=== PATIENT | female | born 1940 | race Caucasian/White ===

== ENCOUNTER 2018-04-08 14:13 | Emergency (ER) | payer OTHER ==
[~2018-04-08] VITALS: Ht 154.9 cm; Wt 66.2 kg
[~2018-04-08 14:13] MED LIST: ALBAFORT325 ( 65 ); ATROVENT 00.5 MG/2.5 IH; CALCIUM600 MG; CATAFLAM50 MG PO; DICLOFENAC SODI50 MG PO; LEVOTHROID25 MCG; LIPITOR20 MG; ORPH100T PO; PANTOPRAZOLE SO40 MG; PRE PROTEIN1 TAB; SINGULAIR 10MG10 MG PO; VITAMIN D1000 UNIT
== END 2018-04-08 20:05 | disposition home or self-care (01) ==
LOC: ER 14:13
DX: M54.31 Sciatica, right side (principal)

== ENCOUNTER 2018-09-14 13:50 | Emergency (ER) | payer OTHER ==
[~2018-09-14] VITALS: Ht 152.4 cm; Wt 67.1 kg
== END 2018-09-14 18:42 | disposition home or self-care (01) ==
LOC: ER 13:50
DX: M13.841 Other specified arthritis, right hand (principal); M79.641 Pain in right hand